=== PATIENT | male | born 1980 | race Caucasian/White ===

== ENCOUNTER 2017-06-17 05:18 | Emergency (ER) | payer SELFPAY ==
[2017-06-17] MEDS ORDERED: TOBRAMYCIN 0.3% - 5 ML EYE DROPS EACH EYE ONE (05:44)
[2017-06-17] MEDS ORDERED: Tetracaine Ophth Soln 0.5% 40 DRP/4 ML BOTTLE EACH EYE ONE (05:44)
[2017-06-17] MEDS ORDERED: Tetracaine Ophth Soln 0.5% 40 DRP/4 ML BOTTLE ONE (05:54)
--- NOTE | 2017-06-17 05:54 | PDOC ---
Eye Complaint HPI - General Chief Complaint: Eye Problem / Injury Stated Complaint: BILATERAL EYE PAIN AND VISION CHANGES Date Seen by Provider: 06/17/17 Time Seen by Provider: 05:49 Source: POSITIVE: Patient Exam Limitations: POSITIVE: No limitations Nurse's Notes Reviewed & Considered: Yes - History of Present Illness Initial Comments: 36-year-old male complaining of bilateral eye pain. 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 His conjunctivae surfaces are erythemic, his eyes are watering profusely, and he has photophobia. Patient states he was using eye protection. Have you received a tetanus shot in the past 10 years?: No Location: Both Eyes Timing: REPORTS: Abrupt Duration: <24 hours Severity: Severe Quality: REPORTS: "Pain" Recent Injury: REPORTS: Yes Associated Symptoms: REPORTS: Pain, Burning, Sensitivity to Light, Redness Context: REPORTS: Welding Arc Exposure Location at Time of Onset: REPORTS: Work Modifying Factors: REPORTS: Nothing Relieves Similar Symptoms Previously: Yes Recent Care Received: REPORTS: Denies Any Prior Injuries Related to Current Complaint?: No - Patient Home Medications Home Medications: Home Medications Albuterol [PROVENTIL HFA] 1 - 2 inh IH .Q4-6H PRN #1 inhaler 11/28/16 - Patient Allergies Allergies/Adverse Reactions: Allergies Allergy/AdvReac Type Severity Reaction Status Date / Time No Known Drug Allergies Allergy N/A Verified 06/17/17 05:20 Past Medical History - heen HEENT History: Other (please comment) Additional HEENT History: HISTORY BILATERAL EAR TUBES A CHILD Cardiovascular History: Denies History Respiratory History: Asthma Gastrointestinal History: Denies History Genitourinary History: Denies History Endocrine History: Denies History Musculoskeletal History: Denies History Prosthesis or Implant: No Neurological History: Denies History Blood Disorders: Denies History Psychiatric History: Denies History History of Sexually Transmitted Diseases: No Cancer History: Denies History History of MDRO: No History of Other Communicable Diseases: No Alcohol Use: None Substance Use Type: None Previous Surgical History: Yes Type / Date of Surgery: TUBES IN EARS CHILD, 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 Anesthesia Reactions: No Malignant Hyperthermia: No Significant Family History: No pertinent family hx ROS Constitution: REPORTS: Denies Symptoms Cardiovascular: REPORTS: Denies Cardiac Symptoms Respiratory: REPORTS: Denies Resp Symptoms Neurological: REPORTS: Denies Neuro Symptoms Gastrointestinal: REPORTS: Denies GI Symptoms Endocrine: REPORTS: Denies Symptoms Musculoskeletal: REPORTS: Denies MS Symptoms Genitourinary: REPORTS: Denies Symptoms Eyes: REPORTS: Eye Pain, Red Eyes, Eye Drainage ENT: REPORTS: Denies Symptoms Skin: REPORTS: Denies Skin Symptoms Lympathic: REPORTS: Denies Lympathic Symptoms Immunologic: POSITIVE: Denies Symptoms Psychiatric: POSITIVE: Denies Psych Symptoms Eye Complaint Physical Exam - General Appearance General Appearance: POSITIVE: Alert, Cooperative, Moderate Distress - Visual Acuity / Pupil Size Pupil Size: 4 mm: Bilateral - HEENT Head / Face: POSITIVE: Atraumatic, Normal Inspection, No Facial Swelling Eyes: POSITIVE: Inspection Normal, PERRL, EOM's Intact, Eyelids Uninjured, No Nystagmus, No Globe Trauma, Posterior Segments Normal, Conjunctivae (red), 1st Degree Burn, Photophobia Ears: POSITIVE: Ears Normal Inspection, Auricle Normal Nose: POSITIVE: Inspection Normal, No Apparent Trauma, Nares Normal, No CSF Leak Oropharynx: POSITIVE: External Inspection Nml, Airway Intact, Voice Normal, Moist Mucous Membranes Procedures - Laceration/Wound Repair Did patient have a laceration repair: No Eye Complaint Progress - Patient's Progress Pain Medication Addressed: POSITIVE: Yes (Tetracaine applied to both eyes.) Re-Examine Time:: 06:00 Status: POSITIVE: Improved MDM / ED Course: Patient was examined. Tetracaine applied bilaterally to his eyes. Bleph-10 was supplied. 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 Plan: Discharge home, Bleph-10 applied 2 drops every 2 hours for 3 days. Follow -up with fruit farmworker. - Consult Counseled: POSITIVE: Patient, Family, RE: DX, RE: Need for F/U Patient Care Time - Estimated PCT Patient Care Time (In Minutes): 10 Vital Signs - VS Reviewed Vital Signs Reviewed: Yes Discharge Clinical Impression: Keratitis Discharge Disposition: Discharged to Home Condition: Good Patient Instructions Given at Discharge: Corneal Flash Castañeda (ED)
[2017-06-17] MEDS ORDERED: SULFACETAMIDE 10% - 5 ML EYE DROPS EACH EYE ONE (05:59)
[2017-06-17 06:21] VITALS: RESP 20; TEMP 97.6
== END 2017-06-17 06:15 | disposition home or self-care (01) ==
LOC: SUPCPDRO 05:18 → ER 05:18
DX: H16.8 Other keratitis (principal); H53.143 Visual discomfort, bilateral; H57.13 Ocular pain, bilateral; W31.89XA Contact with other specified machinery, initial encounter
CPT/HCPCS: 99282